=== PATIENT | female | born 1985 | race Caucasian/White ===

== ENCOUNTER 2016-08-11 18:40 | Emergency (ER) | payer OTHER ==
--- NOTE | 2016-08-11 19:02 | ED NURSING NOTES ---
Clinical Report - Nurses [facility] [address] [place] [address] 08/11/2016 18:40 [id number] TRI[facility] Triage time 18:48. Acuity: LEVEL 3. Chief Complaint: INJURY TO THE RIGHT LEG. Alert. MURPHY COMA SCORE: [place] Coma Scale: 15- eyes open spontaneously (4); best verbal response- oriented x 4 (5); best motor response- obeys commands (6). --18:53 Stephanie Partida R.N. 18:48 08/11/16. BP: 105/77. HR: 76. RR: 18. O2 saturation: 100% on room air. Temp: 98.7 F (oral). --18:53 Stephanie Partida R.N. Weight: 58.9 kg stated. Height/Length: 64 inches Per Patient. BMI: 22.3. --18:53 Stephanie Partida R.N. Medications HydrOXYzine HCl Oral. --18:49 Stephanie Partida R.N. Medication/allergy information source: the patient. --18:53 Stephanie Partida R.N. Allergies No Known Drug Allergy. --18:49 Stephanie Partida R.N. History Arrived by private vehicle. Historian: patient. Accompanied by family. Primary physician (none). This occurred just prior to arrival. She sustained a laceration from a broken glass. PAST MEDICAL HX: Tetanus status: unknown. Last normal menstrual period- July 2016. SOCIAL HX: Former smoker. Occasional alcohol use. No drug use. FALL RISK ASSESSMENT: Fall risk assessment completed. No fall risk identified. FUNCTIONAL ASSESSMENT: Functional assessment: no impairments noted. LEARNING NEEDS ASSESSMENT: The learning needs assessment revealed no barriers. --18:53 Stephanie Partida R.N. PROBLEMS: no known problems. ADDITIONAL SURGERIES: Ear. Knee Surgery. --18:52 Stephanie Partida R.N. Assessment GENERAL / NEURO / PSYCH: Alert. Oriented X 4. Appears in no acute distress. Patient appears calm and cooperative. RESPIRATORY: Respirations not labored. SKIN: Skin is warm and dry. --18:53 Stephanie Partida R.N. Interventions ID band on patient. To treatment room. --18:53 Stephanie Partida R.N. PHYSICAL ASSESSMENT 18:51 08/11/16. Ambulatory to room. Patient gowned. GENERAL / NEURO / PSYCH: Oriented X 4. Alert. Appears in no acute distress. SKIN: Skin is warm and dry. --18:51 Stephanie Partida R.N. NURSING PROGRESS NOTES 18:51 08/11/16. Call light placed in reach. Side rails up x 1. Bed placed in lowest position. Brakes of bed on. --18:51 Stephanie Partida R.N. Wound cleansed with sterile saline. --19:02 Adeola Verde 19:05 08/11/2016 TDAP IM 0.5 mL given. (Lot#: [id number], expiration date: 01/06/2018, Advertising Traffic Manager: sanofi pasteur). Given in the left deltoid. Allergies verified and confirmed 5 rights. Vaccine information statement provided to the patient. --19:05 Stephanie Partida R.N. 19:09. WOUND REPAIR: Wound repair performed by PA. Assisted by one tech. The wound is located on the right thigh. The wound is 3.0cm in length. The wound is linear. Preparation. Wound cleansed per ELLE and irrigated per PA. Procedure: wound repaired with sutures. Post-procedure: she was stable, no complications, bleeding controlled and neuro-vascular status intact distal to wound. Total time of assist / procedure: 15 minutes. ( 1 suture pack used in repair). --19:26 Abelardo Flor R.N. 19:17. Applied dressing consisting of Band-Aid, following the application of antibiotic ointment (bacitracin). --19:26 Abelardo Flor R.N. Extremities: Neuro-vascular status intact to the extremities. 19:20. The patient is calm and resting quietly. GENERAL / NEURO / PSYCH: Alert. Oriented X 4. RESPIRATORY: No respiratory distress. SKIN: Skin is warm and dry. --19:27 Abelardo Flor R.N. DISPOSITION / DISCHARGE Departure time: 1921. Condition at departure: stable. No learning barriers present. Discharge instructions provided and reviewed with the patient. Patient verbalized understanding. Written instructions provided in Ukrainian. The patient was discharged home and accompanied by water operator. She left the Emergency Department ambulatory and via private vehicle. Spanish Instructor driving. FALL RISK ASSESSMENT: Fall risk assessment completed. No fall risk identified. --19:26 Abelardo Flor R.N. Locked/Released at 08/11/2016 19:29 by Abelardo Flor R.N.
--- NOTE | 2016-08-11 19:02 | ED ORDER SUMMARY ---
..... Patient: LESLIE BLACKMAN OrderSheet [facility] VisitID: [id number] [address] [place] [address] 31y, F Registration Date/Time: 08/11/2016 ORDER SHEET Weight: 58.9 kg (stated) Allergies: No Known Drug Allergy GENERAL ORDERS: MEDICATION ORDERS: Tdap IM 0.5 mL (NOW, per protocol) (18:56 08/11/2016 Lamar Haddad) (Ack 18:59 Marlene Wren.Chas) (19:05 Marlene R.Arleen.) IV FLUIDS: ORDER SHEET NOTES: [Electronically signed by Abelardo Flor R.N. (19:29 08/11/2016)] [Electronically signed by Lakshmi Whitley P.A.-C (19:30 08/11/2016)] [Electronically locked/signed by Abelardo Flor R.N. (19:29 08/11/2016)]
--- NOTE | 2016-08-11 19:02 | ED CLINICAL REPORT ---
Clinical Report - Physicians/Mid Levels [facility] [address] [place] [address] 08/11/2016 18:40 Patient: LESLIE BLACKMAN Time Seen: 1900. Arrived- By private vehicle. HISTORY OF PRESENT ILLNESS Chief Complaint: Injury to right leg. The injury happened just prior to arrival. The patient sustained a laceration. Occurred at work. Patient is experiencing mild pain. Patient denies injury to the head or neck. (Patient sustained an laceration to her right lower extremity while wearing jeans at work. Patient reports a prior injury to the thigh. Unsure of last tetanus immunization. Denies any current bleeding. Denies any difficulty with ambulation.). REVIEW OF SYSTEMS The patient sustained a laceration. No swelling. She has no pain on weight bearing. All systems otherwise negative, except as recorded above. PAST HISTORY The patient has not had a prior injury to the same area. Tetanus immunization status is unknown. Problems: no known problems. Additional Surgeries: Ear. Knee Surgery. Medications: HydrOXYzine HCl Oral. Allergies: No Known Drug Allergy. SOCIAL HISTORY Former smoker. Alcohol use. ADDITIONAL NOTES The nursing notes have been reviewed. PHYSICAL EXAM Vital Signs: 08/11/2016 18:48 BP: 105/77. HR: 76. RR: 18. O2 saturation: 100%. Temp: 98.7 F. Appearance: Alert. Head: Head atraumatic. ENT: Pharynx normal. CVS: Normal heart rate and rhythm. Heart sounds normal. Respiratory: No respiratory distress. Breath sounds normal. Skin: Skin warm. Extremities: Right thigh: 2.0 cm laceration. SEE LACERATION PROCEDURE NOTE #1. Neurovascular intact distally. (Partial thickness vertical laceration 2 cm minimally gaping. Just lateral of midline.). No tenderness, ecchymosis or foreign body. Right knee. No tenderness or swelling. Neuro, Vascular and Tendons: Vascular status intact. Motor intact. Gait: No limping gait. Neuro: Oriented X 3. PROGRESS AND PROCEDURES Laceration Repair: Location: (r. thigh). Time-out completed immediately before the procedure. Length: 2 cm. Complexity: simple (local anesthesia used). Wound depth/shape- linear and involving fascia. Wound is clean. Local anesthesia provided using 1% lidocaine. Prepped with Betadine. Wound explored and cleansed. Closure of superficial layer: interrupted 4-0 (7 sutures, non absorb). Course of Care: Laceration repaired with no signs of foreign object or secondary infectious process. Patient very stable. Good distal sensation. Tetanus immunization updated in the emergency department. No joint overlying lacerations. Patient is stable. Patient/family counseled. Disposition: Discharged. CLINICAL IMPRESSION Single superficial laceration to the right thigh and right knee. INSTRUCTIONS Protect wound and keep wound area clean. Keep wounds dry. You may wash wounds briefly, then dry. Apply bacitracin twice daily. Sutures should be removed in ten days. Elevate affected areas above chest level. Warnings: TETANUS: You were given a tetanus shot during your visit. Make a note for future reference. OTC Medications: Take OTC medications according to label instructions. Available over the counter. Acetaminophen (available over the counter): take according to label instructions. Motrin (available over the counter): take according to label instructions. Follow-up: Follow up with your doctor in ten days. (Electronically signed by Lakshmi Whitley P.A.-C 08/11/2016 19:30)
--- NOTE | 2016-08-11 19:02 | ED NURSING NOTES ---
Clinical Report - Nurses [facility] [address] [place] [address] 08/11/2016 18:40 [id number] TRIAGE Triage time 18:48. Acuity: LEVEL 3. Chief Complaint: INJURY TO THE RIGHT LEG. Alert. MURPHY COMA SCORE: [place] Coma Scale: 15- eyes open spontaneously (4); best verbal response- oriented x 4 (5); best motor response- obeys commands (6). --18:53 Stephanie Partida R.N. 18:48 08/11/16. BP: 105/77. HR: 76. RR: 18. O2 saturation: 100% on room air. Temp: 98.7 F (oral). --18:53 Stephanie Partida R.N. Weight: 58.9 kg stated. Height/Length: 64 inches Per Patient. BMI: 22.3. --18:53 Stephanie Partida R.N. Medications HydrOXYzine HCl Oral. --18:49 Stephanie Partida R.N. Medication/allergy information source: the patient. --18:53 Stephanie Partida R.N. Allergies No Known Drug Allergy. --18:49 Stephanie Partida R.N. History Arrived by private vehicle. Historian: patient. Accompanied by family. Primary physician (none). This occurred just prior to arrival. She sustained a laceration from a broken glass. PAST MEDICAL HX: Tetanus status: unknown. Last normal menstrual period- July 2016. SOCIAL HX: Former smoker. Occasional alcohol use. No drug use. FALL RISK ASSESSMENT: Fall risk assessment completed. No fall risk identified. FUNCTIONAL ASSESSMENT: Functional assessment: no impairments noted. LEARNING NEEDS ASSESSMENT: The learning needs assessment revealed no barriers. --18:53 Stephanie Partida R.N. PROBLEMS: no known problems. ADDITIONAL SURGERIES: Ear. Knee Surgery. --18:52 Stephanie Partida R.N. Assessment GENERAL / NEURO / PSYCH: Alert. Oriented X 4. Appears in no acute distress. Patient appears calm and cooperative. RESPIRATORY: Respirations not labored. SKIN: Skin is warm and dry. --18:53 Stephanie Partida R.N. Interventions ID band on patient. To treatment room. --18:53 Stephanie Partida R.N. PHYSICAL ASSESSMENT 18:51 08/11/16. Ambulatory to room. Patient gowned. GENERAL / NEURO / PSYCH: Oriented X 4. Alert. Appears in no acute distress. SKIN: Skin is warm and dry. --18:51 Stephanie Partida R.N. NURSING PROGRESS NOTES 18:51 08/11/16. Call light placed in reach. Side rails up x 1. Bed placed in lowest position. Brakes of bed on. --18:51 Stephanie Partida R.N. Wound cleansed with sterile saline. --19:02 Adeola Verde 19:05 08/11/2016 TDAP IM 0.5 mL given. (Lot#: [id number], expiration date: 01/06/2018, Anesthesia Technician: sanofi pasteur). Given in the left deltoid. Allergies verified and confirmed 5 rights. Vaccine information statement provided to the patient. --19:05 Stephanie Partida R.N. 19:09. WOUND REPAIR: Wound repair performed by PA. Assisted by one tech. The wound is located on the right thigh. The wound is 3.0cm in length. The wound is linear. Preparation. Wound cleansed per ELLE and irrigated per PA. Procedure: wound repaired with sutures. Post-procedure: she was stable, no complications, bleeding controlled and neuro-vascular status intact distal to wound. Total time of assist / procedure: 15 minutes. ( 1 suture pack used in repair). --19:26 Abelardo Flor R.N. 19:17. Applied dressing consisting of Band-Aid, following the application of antibiotic ointment (bacitracin). --19:26 Abelardo Flor R.N. Extremities: Neuro-vascular status intact to the extremities. 19:20. The patient is calm and resting quietly. GENERAL / NEURO / PSYCH: Alert. Oriented X 4. RESPIRATORY: No respiratory distress. SKIN: Skin is warm and dry. --19:27 Abelardo Flor R.N. DISPOSITION / DISCHARGE Departure time: 1921. Condition at departure: stable. No learning barriers present. Discharge instructions provided and reviewed with the patient. Patient verbalized understanding. Written instructions provided in Swedish. The patient was discharged home and accompanied by clinical science consultant. She left the Emergency Department ambulatory and via private vehicle. Assembly Press Operator driving. FALL RISK ASSESSMENT: Fall risk assessment completed. No fall risk identified. --19:26 Abelardo Flor R.N. Locked/Released at 08/11/2016 19:29 by Abelardo Flor R.N.
--- NOTE | 2016-08-11 19:02 | ED ORDER SUMMARY ---
..... Patient: LESLIE BLACKMAN OrderSheet [facility] VisitID: [id number] [address] [place] [address] 31y, F Registration Date/Time: 08/11/2016 ORDER SHEET Weight: 58.9 kg (stated) Allergies: No Known Drug Allergy GENERAL ORDERS: MEDICATION ORDERS: Tdap IM 0.5 mL (NOW, per protocol) (18:56 08/11/2016 Lamar Haddad) (Ack 18:59 Marlene Wren.Chas) (19:05 Marlene R.Arleen.) IV FLUIDS: ORDER SHEET NOTES: [Electronically signed by Abelardo Flor R.N. (19:29 08/11/2016)] [Electronically signed by Lakshmi Whitley P.A.-C (19:30 08/11/2016)] [Electronically locked/signed by Abelardo Flor R.N. (19:29 08/11/2016)]
--- NOTE | 2016-08-11 19:30 | ED MAR SUMMARY ---
..... Medication Administration Record [facility] [address] [place] [address] Patient: LESLIE BLACKMAN Visit ID: [id number] 31y, F Weight: 58.9 kg Height/Length: 64 in BMI: 22.3 ALLERGIES: No Known Drug Allergy Given 19:05 08/11/2016 Stephanie Partida RXiangNXiang Medication Administered: TDAP [IM], Dose: 0.5 mL IM. Medication Ordered: Tdap IM 0.5 mL (NOW, per protocol).
--- NOTE | 2016-08-11 19:30 | ED MAR SUMMARY ---
..... Medication Administration Record [facility] [address] [place] [address] Patient: LESLIE BLACKMAN Visit ID: [id number] 31y, F Weight: 58.9 kg Height/Length: 64 in BMI: 22.3 ALLERGIES: No Known Drug Allergy Given 19:05 08/11/2016 Stephanie Partida RXiangNXiang Medication Administered: TDAP [IM], Dose: 0.5 mL IM. Medication Ordered: Tdap IM 0.5 mL (NOW, per protocol).
--- NOTE | 2016-08-11 19:30 | ED DISCHARGE INSTRUCTIONS ---
Patient: LESLIE BLACKMAN General Instructions [facility] VisitID: [id number] [place] [address] 31y, F Registration Date/Time: 08/11/2016 Single superficial laceration to the right thigh and right knee. INSTRUCTIONS Protect wound and keep wound area clean. Keep wounds dry. You may wash wounds briefly, then dry. Apply bacitracin twice daily. Sutures should be removed in ten days. Elevate affected areas above chest level. Warnings: TETANUS: You were given a tetanus shot during your visit. Make a note for future reference. OTC Medications: Take OTC medications according to label instructions. Available over the counter. Acetaminophen (available over the counter): take according to label instructions. Motrin (available over the counter): take according to label instructions. Follow-up: Follow up with your doctor in ten days. ADDITIONAL INFORMATION Laceration, Extremity (Sutures, [place], Or Tape) A laceration is a cut through the skin. This will usually require stitches (sutures) or melvin if it is deep. Minor cuts may be treated with surgical tape closures. Home care The following guidelines will help you care for your laceration at home: Keep the wound clean and dry. If a bandage was applied and it becomes wet or dirty, replace it. Otherwise, leave it in place for the first 24 hours, then change it once a day or as directed. If stitches or melvin were used, clean the wound daily: After removing the bandage, wash the area with soap and water. Use a wet cotton swab to loosen and remove any blood or crust that forms. After cleaning, keep the wound clean and dry. Talk with your doctor before applying any antibiotic ointment to the wound. Reapply the bandage. You may remove the bandage to shower as usual after the first 24 hours, but do not soak the area in water (no swimming) until the stitches or melvin are removed. If surgical tape closures were used, keep the area clean and dry. If it becomes wet, blot it dry with a towel. The doctor may prescribe an antibiotic cream or ointment to prevent infection. Do not stop taking this medication until you have finished the prescribed course or the doctor tells you to stop. The doctor may also prescribe medications for pain. Follow the doctors instructions for taking these medications. If you have chronic liver or kidney disease or ever had a stomach ulcer or GI bleeding, talk with your doctor before using these medicines. Follow-up care Follow up with your health care provider. Most skin wounds heal within ten days. However, an infection may sometimes occur despite proper treatment. Therefore, check the wound daily for the signs of infection listed below. Stitches and melvin should be removed within 714 days. If surgical tape closures were used, you may remove them after 10 days, if they have not fallen off by then. Notify your doctor if you notice persistent numbness or weakness in the injured extremity. (Note:A radiologist will review any X-rays that were taken. We will notify you of any new findings that may affect your care.) When to seek medical care Get prompt medical attention if any of these occur: Increasing pain in the wound Redness, swelling, or pus coming from the wound Fever of 100.4F (38C) or higher, or as directed by your health care provider If stitches or melvin come apart or fall out before your next appointment If the surgical tape closures fall off within seven days, or the wound edges re-open Bleeding not controlled by direct pressure Diphtheria Toxoid Adsorbed, Pertussis Vaccine, Acellular (Adsorbed), Tetanus Toxoid, Adsorbed Suspension for injection What is this medicine? DIPHTHERIA and TETANUS TOXOIDS; PERTUSSIS VACCINE (dif THEER ee uh and TET n us TOK soids; per TUS iss vak SEEN) is used to prevent diphtheria, tetanus, and pertussis infections. How should I use this medicine? This vaccine is for injection into a muscle. It is given by a health emergency care tech. A copy of Vaccine Information Statements will be given before each vaccination. Read this sheet carefully each time. The sheet may change frequently. Talk to your mold washer regarding the use of this vaccine in children. While the DTP vaccine may be given to children ages 6 weeks to 7 years and the Tdap vaccine may be given to children at least 10 years old, precautions do apply. What side effects may I notice from receiving this medicine? Side effects that you should report to your doctor or health emergency care tech as soon as possible: allergic reactions like skin rash, itching or hives, swelling of the face, lips, or tongue breathing problems fever of 103 degrees F or more flu-like symptoms inconsolable crying infection pain, tingling, numbness in the hands or feet seizures swelling of arm or leg that was injected unusually weak or tired Side effects that usually do not require immediate medical attention (report these side effects to your doctor or health emergency care tech if they continue or are bothersome): fussy, irritable loss of appetite fever of 102 degrees F or less pain, tenderness, redness, swelling, or a 'knot' at site where injected vomiting What may interact with this medicine? immune globulin medicines that suppress your immune function like adalimumab, anakinra, infliximab medicines to treat cancer medicines that treat or prevent blood clots like warfarin, enoxaparin, and dalteparin steroid medicines like prednisone or cortisone What if I miss a dose? It is important not to miss your dose. Call your doctor or health emergency care tech if you are unable to keep an appointment. Where should I keep my medicine? This drug is given in a hospital or clinic and will not be stored at home. What should I tell my health care provider before I take this medicine? They need to know if you have any of these conditions: blood disorders like hemophilia fever or infection immune system problems neurologic disease seizures an unusual or allergic reaction to vaccines, thimerosal, latex, other medicines, foods, dyes, or preservatives or trying to get breast-feeding What should I watch for while using this medicine? See your health care provider for all shots of this vaccine as directed. To have protection from infection, you must have 3 shots of this vaccine plus boosters as needed. Tell your doctor right away if you have any serious or unusual side effects after getting this vaccine. You have been given the following additional information: Laceration, Extrem (Suture, Staple, Or Tape) Diphtheria Toxoid Adsorbed, Pertussis Vaccine, Acellular (Adsorbed), Tetanus Toxoid, Adsorbed Suspension for injection (Electronically signed by Lakshmi Whitley P.A.-C 08/11/2016 19:30)
--- NOTE | 2016-08-11 19:30 | ED MED RECONCILIATION SUMMARY ---
Patient: LESLIE BLACKMAN Medication Reconciliation Report [facility] VisitID: [id number] [address] [place] [address] 31y, F Registration Date/Time: 08/11/2016 Weight: 58.9 kg Height/Length: 64 in. BMI: 22.3 ALLERGIES: No Known Drug Allergy The patient's Home Medications are listed below: THE FOLLOWING MEDICATIONS NEED TO BE RECONCILED: HydrOXYzine HCl Oral The source(s) of the original Home Medication information: patient The following Medications were given to the patient in the Emergency Department: TDAP [IM] IM 0.5 mL, administered: 08/11/2016 7:05:00 PM The following Medications were prescribed to the patient: Take OTC medications according to label instructions. Available over the counter. -- Lakshmi Whitley, P.A.-C Acetaminophen (available over the counter): take according to label instructions. -- Lakshmi Whitley, P.A.-C Motrin (available over the counter): take according to label instructions. -- Lakshmi Whitley, P.A.-C
--- NOTE | 2016-08-11 19:30 | ED DISCHARGE INSTRUCTIONS ---
Patient: LESLIE BLACKMAN General Instructions [facility] VisitID: [id number] [place] [address] 31y, F Registration Date/Time: 08/11/2016 Single superficial laceration to the right thigh and right knee. INSTRUCTIONS Protect wound and keep wound area clean. Keep wounds dry. You may wash wounds briefly, then dry. Apply bacitracin twice daily. Sutures should be removed in ten days. Elevate affected areas above chest level. Warnings: TETANUS: You were given a tetanus shot during your visit. Make a note for future reference. OTC Medications: Take OTC medications according to label instructions. Available over the counter. Acetaminophen (available over the counter): take according to label instructions. Motrin (available over the counter): take according to label instructions. Follow-up: Follow up with your doctor in ten days. ADDITIONAL INFORMATION Laceration, Extremity (Sutures, Vivian, Or Tape) A laceration is a cut through the skin. This will usually require stitches (sutures) or melvin if it is deep. Minor cuts may be treated with surgical tape closures. Home care The following guidelines will help you care for your laceration at home: Keep the wound clean and dry. If a bandage was applied and it becomes wet or dirty, replace it. Otherwise, leave it in place for the first 24 hours, then change it once a day or as directed. If stitches or melvin were used, clean the wound daily: After removing the bandage, wash the area with soap and water. Use a wet cotton swab to loosen and remove any blood or crust that forms. After cleaning, keep the wound clean and dry. Talk with your doctor before applying any antibiotic ointment to the wound. Reapply the bandage. You may remove the bandage to shower as usual after the first 24 hours, but do not soak the area in water (no swimming) until the stitches or melvin are removed. If surgical tape closures were used, keep the area clean and dry. If it becomes wet, blot it dry with a towel. The doctor may prescribe an antibiotic cream or ointment to prevent infection. Do not stop taking this medication until you have finished the prescribed course or the doctor tells you to stop. The doctor may also prescribe medications for pain. Follow the doctors instructions for taking these medications. If you have chronic liver or kidney disease or ever had a stomach ulcer or GI bleeding, talk with your doctor before using these medicines. Follow-up care Follow up with your health care provider. Most skin wounds heal within ten days. However, an infection may sometimes occur despite proper treatment. Therefore, check the wound daily for the signs of infection listed below. Stitches and melvin should be removed within 714 days. If surgical tape closures were used, you may remove them after 10 days, if they have not fallen off by then. Notify your doctor if you notice persistent numbness or weakness in the injured extremity. (Note:A radiologist will review any X-rays that were taken. We will notify you of any new findings that may affect your care.) When to seek medical care Get prompt medical attention if any of these occur: Increasing pain in the wound Redness, swelling, or pus coming from the wound Fever of 100.4F (38C) or higher, or as directed by your health care provider If stitches or melvin come apart or fall out before your next appointment If the surgical tape closures fall off within seven days, or the wound edges re-open Bleeding not controlled by direct pressure Diphtheria Toxoid Adsorbed, Pertussis Vaccine, Acellular (Adsorbed), Tetanus Toxoid, Adsorbed Suspension for injection What is this medicine? DIPHTHERIA and TETANUS TOXOIDS; PERTUSSIS VACCINE (dif THEER ee uh and TET n us TOK soids; per TUS iss vak SEEN) is used to prevent diphtheria, tetanus, and pertussis infections. How should I use this medicine? This vaccine is for injection into a muscle. It is given by a health medicare interviewer. A copy of Vaccine Information Statements will be given before each vaccination. Read this sheet carefully each time. The sheet may change frequently. Talk to your maintenance of way superintendent regarding the use of this vaccine in children. While the DTP vaccine may be given to children ages 6 weeks to 7 years and the Tdap vaccine may be given to children at least 10 years old, precautions do apply. What side effects may I notice from receiving this medicine? Side effects that you should report to your doctor or health medicare interviewer as soon as possible: allergic reactions like skin rash, itching or hives, swelling of the face, lips, or tongue breathing problems fever of 103 degrees F or more flu-like symptoms inconsolable crying infection pain, tingling, numbness in the hands or feet seizures swelling of arm or leg that was injected unusually weak or tired Side effects that usually do not require immediate medical attention (report these side effects to your doctor or health medicare interviewer if they continue or are bothersome): fussy, irritable loss of appetite fever of 102 degrees F or less pain, tenderness, redness, swelling, or a 'knot' at site where injected vomiting What may interact with this medicine? immune globulin medicines that suppress your immune function like adalimumab, anakinra, infliximab medicines to treat cancer medicines that treat or prevent blood clots like warfarin, enoxaparin, and dalteparin steroid medicines like prednisone or cortisone What if I miss a dose? It is important not to miss your dose. Call your doctor or health medicare interviewer if you are unable to keep an appointment. Where should I keep my medicine? This drug is given in a hospital or clinic and will not be stored at home. What should I tell my health care provider before I take this medicine? They need to know if you have any of these conditions: blood disorders like hemophilia fever or infection immune system problems neurologic disease seizures an unusual or allergic reaction to vaccines, thimerosal, latex, other medicines, foods, dyes, or preservatives or trying to get breast-feeding What should I watch for while using this medicine? See your health care provider for all shots of this vaccine as directed. To have protection from infection, you must have 3 shots of this vaccine plus boosters as needed. Tell your doctor right away if you have any serious or unusual side effects after getting this vaccine. You have been given the following additional information: Laceration, Extrem (Suture, Staple, Or Tape) Diphtheria Toxoid Adsorbed, Pertussis Vaccine, Acellular (Adsorbed), Tetanus Toxoid, Adsorbed Suspension for injection (Electronically signed by Lakshmi Whitley P.A.-C 08/11/2016 19:30)
--- NOTE | 2016-08-11 19:30 | ED MED RECONCILIATION SUMMARY ---
Patient: LESLIE BLACKMAN Medication Reconciliation Report [facility] VisitID: [id number] [address] [place] [address] 31y, F Registration Date/Time: 08/11/2016 Weight: 58.9 kg Height/Length: 64 in. BMI: 22.3 ALLERGIES: No Known Drug Allergy The patient's Home Medications are listed below: THE FOLLOWING MEDICATIONS NEED TO BE RECONCILED: HydrOXYzine HCl Oral The source(s) of the original Home Medication information: patient The following Medications were given to the patient in the Emergency Department: TDAP [IM] IM 0.5 mL, administered: 08/11/2016 7:05:00 PM The following Medications were prescribed to the patient: Take OTC medications according to label instructions. Available over the counter. -- Lakshmi Whitley, P.A.-C Acetaminophen (available over the counter): take according to label instructions. -- Lakshmi Whitley, P.A.-C Motrin (available over the counter): take according to label instructions. -- Lakshmi Whitley, P.A.-C
== END 2016-08-11 19:22 | disposition home or self-care (01) ==
LOC: ED SRH 18:40
DX: S71.111A Laceration without foreign body, right thigh, initial encounter (principal); S81.011A Laceration without foreign body, right knee, initial encounter; X58.XXXA Exposure to other specified factors, initial encounter; Y93.9 Activity, unspecified; Y99.0 Civilian activity done for income or pay; Y92.89 Other specified places as the place of occurrence of the external cause; Z23 Encounter for immunization